=== PATIENT | female | born 1990 | race Caucasian/White ===

== ENCOUNTER 2021-10-22 07:20 | Inpatient (IN) ==
[~2021-10-22 07:20] MED LIST: STADOL INJ IVP PRN
[2021-10-22] MEDS ORDERED: PITOCIN IVP ONE (07:37)
[2021-10-22] MEDS ORDERED: ANCEF VIAL 1 GRAM IVP ONE (07:37)
[2021-10-22] MEDS ORDERED: PHENERGAN INJ 25 MG IM PRN (07:37)
[2021-10-22] MEDS ORDERED: D5 LR + PITOCIN 10 UNITS/L 10 UNITS/1,000 ML BAG IV PRN ×2 (07:37→18:20)
[2021-10-22] MEDS ORDERED: BETADINE SOLN ONE (07:41)
[2021-10-22] MEDS ORDERED: PITOCIN ONE (07:41)
[2021-10-22] MEDS ORDERED: D5 LR + PITOCIN 10 UNITS/L 10 UNITS/1,000 ML BAG IV ONE ×2 (07:42→18:24)
[2021-10-22] MEDS ORDERED: NS 100 ML IV 100 ML ONE ×3 (07:43→21:43)
[2021-10-22] MEDS: LR 1,000 ML IV 1,000 ML IV ONE ×2 (07:45→15:48)
[2021-10-22] MEDS ORDERED: LR 1,000 ML IV 1,000 ML IV SCH (08:00)
[2021-10-22 08:23] LABS: BILIRUBIN,URINE NEGATIVE (NEGATIVE); BLOOD/HEMOGLOBIN,URINE NEGATIVE (NEGATIVE); GLUCOSE, URINE NEGATIVE (NEGATIVE); KETONES,URINE 2+ (NEGATIVE); LEUKOCYTE ESTERASE ,URINE NEGATIVE (NEGATIVE); NITRITES,URINE NEGATIVE (NEGATIVE); PROTEIN,URINE 2+ (NEGATIVE); UROBILINOGEN,URINE 1+ (NORMAL)
[2021-10-22 08:25] LABS: BASOPHILS % (AUTO) 0.2 % (0.2-1.0); EOSINOPHILS # (AUTO) 0.1 x10^3/uL (0.0-0.2); EOSINOPHILS % (AUTO) 0.8 % (0.9-2.9); HEMATOCRIT 21.8 % (36.0-47.0); HEMOGLOBIN 7.5 g/dL (12.0-16.0); LYMPHOCYTES # (AUTO) 1.9 X10^3/uL (1.3-2.9); LYMPHOCYTES % (AUTO) 24.1 % (21.0-51.0); MEAN CORPUSCULAR HGB CONC 34.2 g/dL (33.0-35.0); MEAN CORPUSCULAR VOLUME 78.9 fL (80.0-100.0); MEAN PLATELET VOLUME 9.1 fL (7.4-11.0); MONOCYTES # (AUTO) 0.5 x10^3/uL (0.3-0.8); MONOCYTES % (AUTO) 6.8 % (0.0-13.0); NEUTROPHILS # (AUTO) 5.4 x10^3/uL (2.2-4.8); NEUTROPHILS % (AUTO) 68.1 % (42.0-75.0); RED BLOOD COUNT 2.76 X10^6/uL (3.5-5.4); RED CELL DISTRIBUTION WIDTH 16.5 % (11.6-16.5); WHITE BLOOD COUNT 7.9 X10^3/uL (3.6-10.0)
[2021-10-22 08:36] LABS: APPEARANCE,URINE HAZY (CLEAR); COLOR,URINE YELLOW (YELLOW)
[2021-10-22 08:47] LABS: RBC,URINE 0-2 /HPF (0-3)
[2021-10-22 08:48] LABS: ALANINE AMINOTRANSFERASE 22 Units/L (12-78); ASPARTATE AMINO TRANSFERASE 24 Units/L (15-37); BACTERIA,URINE NEGATIVE /HPF (NEGATIVE); BLOOD UREA NITROGEN 11 mg/dL (7-18); CALCIUM 8.7 mg/dL (8.5-10.1); CALCIUM OXALATE CRYSTALS,UR FEW /HPF (NEGATIVE); CARBON DIOXIDE 28.3 mmol/L (21-32); CHLORIDE 102 mmol/L (98-107); CREATININE 0.76 mg/dL (0.55-1.02); LACTATE DEHYDROGENASE 148 Units/L (81-234); SODIUM 137 mmol/L (136-145); SQUAMOUS EPITHELIAL CELL,UR MANY /HPF (NEGATIVE); URIC ACID 5.1 mg/dL (2.6-6.0); eGFR NON BLACK RACES > 60 (>60)
[2021-10-22] MEDS ORDERED: REGLAN INJ 10 MG VIAL ONE ×3 (09:15→22:23)
[2021-10-22] MEDS: REGLAN INJ 10 MG VIAL IVP PRN ×2 (09:50→15:00)
[2021-10-22] MEDS ORDERED: K-DUR TAB 20 MEQ PO ONE ×2 (13:35→13:37)
[2021-10-22] MEDS ORDERED: ANCEF VIAL 1 GRAM ONE ×2 (14:20→21:43)
[2021-10-22] MEDS: ANCEF VIAL 1 GRAM IVP SCH ×2 (14:30→21:58)
[2021-10-22] MEDS ORDERED: STADOL INJ ONE (16:34)
[2021-10-22] MEDS ORDERED: LR 1,000 ML IV 1,000 ML IV ONE (16:56)
[2021-10-22] MEDS ORDERED: NAROPIN EPIDURAL 0.2% 100 ML ONE (17:21)
[2021-10-22] MEDS ORDERED: FENTANYL VIAL INJ 100 mcg ONE ×2 (17:21)
[2021-10-22 23:42] LABS: BLOOD UREA NITROGEN 6 mg/dL (7-18); CALCIUM 7.8 mg/dL (8.5-10.1); CARBON DIOXIDE 24.3 mmol/L (21-32); CHLORIDE 103 mmol/L (98-107); CREATININE 0.51 mg/dL (0.55-1.02); SODIUM 137 mmol/L (136-145); eGFR NON BLACK RACES > 60 (>60)
[2021-10-23] MEDS ORDERED: MARCAINE 0.25% INJ ONE (00:32)
[2021-10-23] MEDS ORDERED: PITOCIN ONE (03:20)
[2021-10-23] MEDS ORDERED: LR 1,000 ML IV 1,000 ML IV ONE (03:22)
[2021-10-23] MEDS ORDERED: MOTRIN TAB 800 MG PO PRN ×2 (04:03→04:05)
[2021-10-23] MEDS ORDERED: PHENERGAN INJ 25 MG IM PRN (04:03)
[2021-10-23] MEDS ORDERED: ADACEL or BOOSTRIX TDaP VACCINE IM ONE (04:05)
[2021-10-23] MEDS ORDERED: MILK OF MAGNESIA PO PRN (04:05)
[2021-10-23] MEDS ORDERED: DERMOPLAST PAIN RELIEF SPRAY TOP PRN (04:05)
[2021-10-23] MEDS ORDERED: AMBIEN PO PRN (04:05)
[2021-10-23] MEDS ORDERED: LR 1,000 ML IV 1,000 ML with PITOCIN 20 UNITS IV ONE ×2 (04:17)
[2021-10-23] MEDS ORDERED: D5 1/2 NS 1,000 ML 1,000 ML with PITOCIN 20 UNITS IV SCH ×2 (05:00)
[2021-10-23 05:29] LABS: HEMOGLOBIN 7.6 g/dL (12.0-16.0)
[2021-10-23] MEDS: PRENATAL PLUS PO SCH (08:04)
[2021-10-23] MEDS ORDERED: NS 100 ML IV 100 ML with VENOFER 400 MG IV NR ×2 (11:00)
[2021-10-23] MEDS: REGLAN INJ 10 MG VIAL IVP PRN (12:04)
[2021-10-23] MEDS ORDERED: POTASSIUM CHL 40 MEQ/NS 0.45% 500 ML IV PRN (12:29)
[2021-10-23] MEDS ORDERED: KLOR-CON PO PRN (12:29)
[2021-10-23] MEDS ORDERED: POTASSIUM CHLORIDE LIQ 20 MEQ UDC PO PRN (12:29)
[2021-10-23] MEDS ORDERED: MICRO K EXTEN CAP 10 MEQ PO PRN (12:29)
[2021-10-23] MEDS ORDERED: POTASSIUM CHL 60 MEQ/NS 0.45% 500 ML IV PRN (12:29)
[2021-10-23] MEDS ORDERED: K-RIDER 10 MEQ/NS 100 ML 10 MEQ/100 ML BAG IV PRN (12:29)
[2021-10-23] MEDS: K-DUR TAB 20 MEQ PO PRN ×2 (13:06→15:25)
[2021-10-24] MEDS: REGLAN INJ 10 MG VIAL IVP PRN ×2 (04:27→09:49)
[2021-10-24 05:14] LABS: HEMOGLOBIN 6.3 g/dL (12.0-16.0)
[2021-10-24 05:15] LABS: HEMATOCRIT 18.5 % (36.0-47.0)
[2021-10-24 05:20] LABS: ALANINE AMINOTRANSFERASE 17 Units/L (12-78); ALBUMIN 1.8 g/dL (3.4-5.0); ALKALINE PHOSPHATASE 98 Units/L (46-116); ASPARTATE AMINO TRANSFERASE 20 Units/L (15-37); BLOOD UREA NITROGEN 6 mg/dL (7-18); CALCIUM 8.2 mg/dL (8.5-10.1); CARBON DIOXIDE 24.9 mmol/L (21-32); CHLORIDE 108 mmol/L (98-107); CREATININE 0.53 mg/dL (0.55-1.02); SODIUM 139 mmol/L (136-145); TOTAL PROTEIN 5.1 g/dL (6.4-8.2); eGFR NON BLACK RACES > 60 (>60)
[2021-10-24] MEDS: PRENATAL PLUS PO SCH (08:04)
[2021-10-24 08:22] VITALS: BP 147/88
[2021-10-24] MEDS ORDERED: NS 100 ML IV 100 ML with VENOFER 300 MG IV SCH ×2 (09:00)
== END 2021-10-24 10:20 | disposition home or self-care (01) | DRG 807 ==
LOC: LD 07:20 → MED/SURG 10-23 04:47
PROVIDERS: ADMIT Obstetrics & Gynecology Obstetrics; ATTEND Obstetrics & Gynecology Obstetrics